=== PATIENT | female | born 1980 | race Caucasian/White ===

== ENCOUNTER 2018-03-22 08:42 | Outpatient (CLI) | payer MEDICAID | END 2018-03-22 23:59 | disposition home or self-care (01) | LOC: RAD 08:42 | PROVIDERS: ATTEND Nurse Practitioner | DX: R55 Syncope and collapse (principal); Z87.891 Personal history of nicotine dependence | CPT/HCPCS: 95819 ==

== ENCOUNTER 2018-07-01 08:39 | Outpatient (CLI) | payer MEDICAID | END 2018-07-01 23:59 | disposition home or self-care (01) | LOC: RAD 08:39 | DX: R55 Syncope and collapse (principal); Z72.820 Sleep deprivation | CPT/HCPCS: 95819 ==